=== PATIENT | male | born 1970 | race African-American/Black ===

== ENCOUNTER 2021-05-31 10:42 | Outpatient (REF) | payer OTHER, SELFPAY ==
[2021-05-31 13:33] LABS: MANUAL DIFF FLAG NO
[2021-05-31 13:36] LABS: Basophils Percent Auto 0.7 % (0-2); Eosinophils Absolute Auto 0.2 X10*3/uL (0.0-0.4); Eosinophils Percent Auto 3.7 % (0-4); Hemoglobin 14.3 g/dl (14.0-18.0); Imm Gran Abs Auto 0.02 X10*3/uL (0.00-0.03); Imm Gran Pct Auto 0.4 % (0.0-0.4); Lymphocytes Absolute Auto 1.9 X10*3/uL (1.2-4.9); Lymphocytes Percent Auto 34.1 % (20-40); Mean Corpuscular HGB Conc 32.5 g/dl (31.0-36.0); Mean Corpuscular Hemoglobin 31.2 pg (27.0-33.0); Mean Corpuscular Volume 96.1 fL (80.0-98.0); Mean Platelet Volume 10.2 fL (9.4-12.4); Monocytes Absolute Auto 0.8 X10*3/uL (0.1-1.2); Monocytes Percent Auto 14.4 % (2-11); Neutrophils Absolute Auto 2.7 x10*3/uL (2.0-8.3); Neutrophils Percent Auto 46.7 % (45-73); Platelet Count 305 X10*3/uL (160-400); Red Blood Count 4.58 X10*6/uL (4.60-5.80); Red Cell Distribution Width 14.2 % (11.0-16.0); White Blood Count 5.7 X10*3/uL (4.8-10.8)
[2021-05-31 13:48] LABS: Alanine Aminotransferase 90 U/L (0-40); Albumin Level 4.7 g/dL (3.5-5.0); Alkaline Phosphatase 67 U/L (39-117); Anion Gap 12 (12-20); Aspartate Amino Transferase 65 U/L (5-37); Bilirubin Total 0.8 mg/dL (0.0-1.0); Blood Urea Nitrogen 12 mg/dL (9-16); Calcium 9.7 mg/dL (8.4-10.2); Carbon Dioxide 29 mmol/L (22-29); Chloride 101 mmol/L (96-108); Cholesterol 271 mg/dL; Estimated Glomerular Filt Rate > 60; Glucose Fasting 114 mg/dL (60-99); HDL Cholesterol 89 mg/dL; LDL Cholesterol Calculated 169 mg/dl; Potassium 4.4 mmol/L (3.3-5.1); Rheumatoid Factor < 15.0 IU/mL (<15.0); Sodium 138 mmol/L (135-145); Total Protein 7.6 g/dL (6.5-8.0); Triglycerides 65 mg/dL
[2021-05-31 14:16] LABS: Erythrocyte Sedimentation Rate 2 MM/HR (0-15)
[2021-05-31 14:39] LABS: TSH reflex Free T4 1.37 uIU/mL (0.32-4.0)
[2021-06-02 13:37] LABS: CRP High Sensitivity 1.2 mg/L
[2021-06-02 16:56] LABS: Cyclic Citrullinated Peptide <16 UNITS
== END 2021-05-31 10:43 | disposition home or self-care (01) ==
LOC: HO.WFDLDS 10:42
PROVIDERS: Visit Provider Family Medicine
DX: Z00.00 Encounter for general adult medical examination without abnormal findings (principal); Z12.5 Encounter for screening for malignant neoplasm of prostate; M19.90 Unspecified osteoarthritis, unspecified site
CPT/HCPCS: 36415; 80053; 80061; 84153; 84443; 85025; 85652; 86141; 86200; 86431

== ENCOUNTER → 2021-06-04 10:55 | Outpatient (BNVA) | payer OTHER, SELFPAY | PROVIDERS: PCP Family Medicine; Visit Provider Nurse Practitioner Family | DX: G47.9 Sleep disorder, unspecified (principal); R06.83 Snoring; F10.10 Alcohol abuse, uncomplicated | CPT/HCPCS: 99202 ==

== ENCOUNTER 2021-06-23 11:10 | Emergency (ER) | payer OTHER, SELFPAY ==
--- NOTE | ~2021-06-23 | US_ITS ---
EXAMINATION: US ABDOMEN LIMITED CLINICAL INFORMATION: Right upper quadrant pain. COMPARISON: None TECHNIQUE: Real-time imaging of the right upper quadrant abdominal viscera. FINDINGS: PANCREAS: Visualized portions unremarkable. LIVER: Diffuse increased echotexture without focal abnormality. GALLBLADDER: Mild dependent sludge near the neck without mural thickening or pericholecystic fluid. COMMON BILE DUCT: Normal in caliber measuring 0.4 cm in diameter. RIGHT KIDNEY: 11.2 cm. Unremarkable. FREE FLUID: None. US/US abdomen limited IMPRESSION: 1. Hepatic steatosis. 2. Possible mild dependent gallbladder sludge without acute cholecystitis.
[2021-06-23 11:59] VITALS: BP 126/84; PULSE 74; RESP 19; TEMP 36.6; O2SAT 99; BMI 33.9
[2021-06-23 12:30] LABS: MANUAL DIFF FLAG NO
[2021-06-23 12:32] LABS: Basophils Percent Auto 0.4 % (0-2); Eosinophils Absolute Auto 0.1 X10*3/uL (0.0-0.4); Eosinophils Percent Auto 1.9 % (0-4); Hematocrit 36.6 % (42.0-52.0); Hemoglobin 12.5 g/dl (14.0-18.0); Imm Gran Abs Auto 0.03 X10*3/uL (0.00-0.03); Imm Gran Pct Auto 0.4 % (0.0-0.4); Lymphocytes Absolute Auto 1.2 X10*3/uL (1.2-4.9); Lymphocytes Percent Auto 17.4 % (20-40); Mean Corpuscular HGB Conc 34.2 g/dl (31.0-36.0); Mean Corpuscular Hemoglobin 31.5 pg (27.0-33.0); Mean Corpuscular Volume 92.2 fL (80.0-98.0); Mean Platelet Volume 9.3 fL (9.4-12.4); Monocytes Absolute Auto 0.4 X10*3/uL (0.1-1.2); Monocytes Percent Auto 6.2 % (2-11); Neutrophils Percent Auto 73.7 % (45-73); Platelet Count 215 X10*3/uL (160-400); Red Blood Count 3.97 X10*6/uL (4.60-5.80); Red Cell Distribution Width 14.2 % (11.0-16.0); White Blood Count 6.8 X10*3/uL (4.8-10.8)
[2021-06-23 12:35] LABS: Appearance Urine HAZY; Color Urine YELLOW; Glucose Urine UA NEG (NEG); Leukocyte Esterase Urine NEG (NEG); Nitrite Urine NEG (NEG); Urine Blood NEG (NEG); Urine Ketones NEG (NEG); Urine Protein NEG (NEG-TRACE)
[2021-06-23 12:36] VITALS: BP 124/81; PULSE 68; RESP 17; TEMP 36.7; O2SAT 94
--- NOTE | 2021-06-23 12:36 | ED_ITS ---
HPI - General Adult General Chief complaint: Abdominal Pain Stated complaint: upper r sided rib abd pain Time Seen by Provider: 06/23/21 12:33 Source: patient Limitations: no limitations History of Present Illness HPI narrative: This is a 51-year-old male with a history of alcohol abuse and anxiety, insomnia, who had sudden onset of right upper quadrant pain when he moves a certain way last night. The patient notes that today he notices the pain again when he twist his chest. He denies any shortness of breath. Did feel little nauseated this morning but states that is pretty common for him given his alcohol abuse. He denies any fever. He notes he has not been eating as much after having COVID because he lost his sense of taste and smell. He uses marijuana occasionally, drinks every night, denies any other substances. 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 Related Data Previous Rx's Medication Instructions Recorded fluticasone furoate 50 1 inh INHALATION DAILY PRN 7 Days 04/09/21 mcg/actuation blister powder for #30 ea inhalation escitalopram oxalate 20 mg tablet 20 mg PO DAILY 30 Days #30 tab 05/27/21 (Lexapro) hydroxyzine HCl 50 mg tablet 50 mg PO BID PRN 30 Days #60 tab 05/27/21 meloxicam 15 mg tablet 15 mg PO DAILY 30 Days #30 tab 05/27/21 Allergies Allergy/AdvReac Type Severity Reaction Status Date / Time Opioids-Methadone and Related AdvReac Intermediate Unknown Verified 06/23/21 12:03 lidocaine AdvReac Mild Unknown Verified 06/23/21 12:03 morphine AdvReac Unknown Unknown Verified 06/23/21 12:03 Review of Systems Review of Systems: Yes all other systems are reviewed and are negative Constitutional: Constitutional: Reports as per HPI and Denies fever(s) Eyes: Eyes: Reports as per HPI and Reports no additional eye complaints ENT: Reports system reviewed and no additional complaints, except as documented, Reports as per HPI, Denies nasal congestion, Denies nasal discharge and Denies sore throat Cardiovascular: Cardiovascular: Reports as per HPI, Denies chest pain and Denies dyspnea Respiratory: Respiratory: Reports as per HPI, Denies cough and Denies dyspnea Gastrointestinal: Gastrointestinal: Reports as per HPI, Reports abdominal pain (Right Upper quadrant/right lower chest), Denies diarrhea and Denies vomiting Genitourinary: Genitourinary: Reports as per HPI Musculoskeletal: Musculoskeletal: Reports no additional musculoskeletal complaints and Denies numbness Integumentary/Breasts: Skin/Breast: Reports as per HPI and Denies rash Neurologic: Reports as per HPI, Denies focal weakness and Denies numbness Psychiatric: Psychiatric: Reports no additional psychiatric complaints, Reports as per HPI and Reports anxiety Endocrine: Endocrine: Reports no additional endocrine complaints and Reports as per HPI Hematologic/Lymphatic: Hematologic/Lymphatic: Reports no additional hematol ogic/lymphatic complaints, Reports as per HPI and Reports other (No peripheral edema) [facility] Past Medical History Medical History (Updated 06/23/21 @ 13:38 by Sarabjit Villarreal MD) Anxiety Arthritis COVID-19 Depression Surgical History History of back surgery Family History Family History (Updated 06/04/21 @ 11:11 by Efrain Davila) Mother Breast cancer Congestive heart disease Social History Social History (Updated 06/04/21 @ 11:12 by Efrain Davila) Housing: House Alcohol intake: current Alcohol intake frequency: 3 or more drinks per day Alcohol type: hard liquor Patient Tobacco Use Status: Former Tobacco user Smoked in Last 30 Days: No e-Cigarette/Vaping Use: Never Used Second Hand Smoke Exposure: No Use of substances other than those prescribed or required for medical reasons: Yes Substance Use Type: Marijuana Advance Directives: No Advance Directives Information Provided: Yes service: No Current occupational status: employed Current occupational exposures/hazards: No Cognitive needs: No Hearing needs: No Vision needs: No Physical Exam ED Vital Signs: Vital Signs - 24 hr 06/23/21 11:59 06/23/21 12:36 Temperature 97.8 F 98.1 F Pulse Rate 74 68 Respiratory Rate 19 17 Blood Pressure 126/84 124/81 Pulse Oximetry 99 94 BMI result Body Mass Index 33.9 Const Other: Patient anxious appearing with borderline pressured speech General: no acute distress Orientation/consciousness: patient oriented x3 HENMT Head: Yes normal to inspection General nose exam: Normal external nose present Mouth: moist mucous membranes Throat: Yes posterior oropharynx normal, Yes tonsils normal and Yes uvula midline Eyes Eyelids: Yes eyelids normal Conjunctivae: conjunctivae normal Pupils: Equal, round and reactive pupils present Neck Neck: Yes supple Chest Other: Mildly tender at the junction between the right inferior chest in the right upper quadrant Resp Effort & Inspection: normal respiratory effort Auscultation: clear to auscultation bilaterally Cardio Rate: regular rate Rhythm: regular rhythm Heart sounds: S1 normal heart sound present, S2 normal heart sound present, no g allops, no murmurs and no rubs GI Inspection: No distended Palpation (GI): Soft to palpation and nontender Auscultation: normal bowel sounds Skin General skin exam: other (Warm and dry) Neuro General: patient oriented x3 and CN's II-XI intact bilaterally Cranial nerves: Yes Equal, round and reactive pupils present Extrem General: Yes no pedal edema Psych Affect: normal affect Attitude: cooperative Medical Decision Making MDM Narrative Medical decision making narrative: Patient with a history of anxiety and insomnia, alcohol abuse, appears anxious, is concerned about pain in his right lower chest/right upper quadrant of came on acutely when he moved a certain way, is reproducible on palpation as well as with movement. LFTs and white blood cell count normal. Low suspicion for an acute biliary process. Initially ordered right upper quadrant ultrasound however the patient wished to go home, felt the pain was musculoskeletal, and noted that he was becoming anxious and needed to get home. Lab Data Lab results reviewed: Yes I reviewed the patient's lab results. Result diagrams: 06/23/21 12:26 06/23/21 12:26 Labs: Lab Results 06/23/21 06/23/21 06/23/21 Range/Units 12:26 12:26 12:26 WBC 6.8 (4.8-10.8) X10*3/uL RBC 3.97 L (4.60-5.80) X10*6/uL Hgb 12.5 L (14.0-18.0) g/dl Hct 36.6 L (42.0-52.0) % MCV 92.2 (80.0-98.0) fL MCH 31.5 (27.0-33.0) pg MCHC 34.2 (31.0-36.0) g/dl RDW 14.2 (11.0-16.0) % Plt Count 215 D (160-400) X10*3/uL MPV 9.3 L (9.4-12.4) fL Immature Gran % (Auto) 0.4 (0.0-0.4) % Neut % (Auto) 73.7 H (45-73) % Lymph % (Auto) 17.4 L (20-40) % [place] % (Auto) 6.2 (2-11) % Eos % (Auto) 1.9 (0-4) % Baso % (Auto) 0.4 (0-2) % Lymph # (Auto) 1.2 (1.2-4.9) X10*3/uL [place] # (Auto) 0.4 (0.1-1.2) X10*3/uL Eos # (Auto) 0.1 (0.0-0.4) X10*3/uL Baso # (Auto) 0.0 (0.0-0.2) X10*3/uL Abs Immat Gran (auto) 0.03 (0.00-0.03) X10*3/uL Absolute Neuts (auto) 5.0 (2.0-8.3) x10*3/uL Absolute Nucleated RBC 0.000 (0.0-0.012) X10*3/uL Nucleated RBC % (auto) 0.0 (0.0-0.2) /100WBC Sodium 137 (135-145) mmol/L Potassium 4.7 (3.3-5.1) mmol/L Chloride 103 (96-108) mmol/L Carbon Dioxide 23 (22-29) mmol/L Anion Gap 16 (12-20) BUN 15 (9-16) mg/dL Creatinine 1.07 (0.5-1.4) mg/dL Estim Creat Clear Calc 100.1 Estimated GFR > 60 Random Glucose 99 (60-115) mg/dL Calcium 9.1 D (8.4-10.2) mg/dL Magnesium 1.9 (1.6-2.6) mg/dL Total Bilirubin < 0.2 (0.0-1.0) mg/dL AST 97 H (5-37) U/L ALT 103 H (0-40) U/L Alkaline Phosphatase 67 (39-117) U/L Total Protein 7.4 (6.5-8.0) g/dL Albumin 4.6 (3.5-5.0) g/dL Lipase 35 (8-78) U/L Urine Color YELLOW Urine Appearance HAZY Urine pH 6.0 (5.0-8.0) Ur Specific [place] 1.020 (1.005-1.025) Urine Protein NEG (NEG-TRACE) MG/DL Urine Glucose (UA) NEG (NEG) MG/DL Urine Ketones NEG (NEG) MG/DL Urine Blood NEG (NEG) Urine Nitrite NEG (NEG) Ur Leukocyte Esterase NEG (NEG) Urine Opiates Screen (Not Detect) Urine Fentanyl Screen (Not Detect) Ur Barbiturates Screen (Not Detect) Ur Phencyclidine Scrn (Not Detect) Ur Amphetamines Screen (Not Detect) U Benzodiazepines Scrn (Not Detect) Urine Cocaine Screen (Not Detect) U Marijuana (THC) Screen (Not Detect) 06/23/21 Range/Units 12:26 WBC (4.8-10.8) X10*3/uL RBC (4.60-5.80) X10*6/uL Hgb (14.0-18.0) g/dl Hct (42.0-52.0) % MCV (80.0-98.0) fL MCH (27.0-33.0) pg MCHC (31.0-36.0) g/dl RDW (11.0-16.0) % Plt Count (160-400) X10*3/uL MPV (9.4-12.4) fL Immature Gran % (Auto) (0.0-0.4) % Neut % (Auto) (45-73) % Lymph % (Auto) (20-40) % [place] % (Auto) (2-11) % Eos % (Auto) (0-4) % Baso % (Auto) (0-2) % Lymph # (Auto) (1.2-4.9) X10*3/uL [place] # (Auto) (0.1-1.2) X10*3/uL Eos # (Auto) (0.0-0.4) X10*3/uL Baso # (Auto) (0.0-0.2) X10*3/uL Abs Immat Gran (auto) (0.00-0.03) X10*3/uL Absolute Neuts (auto) (2.0-8.3) x10*3/uL Absolute Nucleated RBC (0.0-0.012) X10*3/uL Nucleated RBC % (auto) (0.0-0.2) /100WBC Sodium (135-145) mmol/L Potassium (3.3-5.1) mmol/L Chloride (96-108) mmol/L Carbon Dioxide (22-29) mmol/L Anion Gap (12-20) BUN (9-16) mg/dL Creatinine (0.5-1.4) mg/dL Estim Creat Clear Calc Estimated GFR Random Glucose (60-115) mg/dL Calcium (8.4-10.2) mg/dL Magnesium (1.6-2.6) mg/dL Total Bilirubin (0.0-1.0) mg/dL AST (5-37) U/L ALT (0-40) U/L Alkaline Phosphatase (39-117) U/L Total Protein (6.5-8.0) g/dL Albumin (3.5-5.0) g/dL Lipase (8-78) U/L Urine Color Urine Appearance Urine pH (5.0-8.0) Ur Specific [place] (1.005-1.025) Urine Protein (NEG-TRACE) MG/DL Urine Glucose (UA) (NEG) MG/DL Urine Ketones (NEG) MG/DL Urine Blood (NEG) Urine Nitrite (NEG) Ur Leukocyte Esterase (NEG) Urine Opiates Screen Not Detected (Not Detect) Urine Fentanyl Screen Not Detected (Not Detect) Ur Barbiturates Screen Not Detected (Not Detect) Ur Phencyclidine Scrn Not Detected (Not Detect) Ur Amphetamines Screen Not Detected (Not Detect) U Benzodiazepines Scrn Not Detected (Not Detect) Urine Cocaine Screen Not Detected (Not Detect) U Marijuana (THC) Screen POSITIVE H (Not Detect) Discharge Plan Discharge Clinical Impression: Acute chest wall pain Patient Disposition: Home, Self-Care Instructions: Chest Wall Pain (ED) Additional Instructions: Taking meloxicam as per routine. Use the hydroxyzine for anxiety. Follow-up with primary care physician. Return for any new or worsened symptoms. Prescriptions: No Action escitalopram oxalate [Lexapro] 20 mg tablet 20 mg PO DAILY 30 Days Qty: 30 1RF hydroxyzine HCl 50 mg tablet 50 mg PO BID PRN (Reason: anxiety) 30 Days Qty: 60 0RF meloxicam 15 mg tablet 15 mg PO DAILY 30 Days Qty: 30 1RF fluticasone furoate 50 mcg/actuation blister with device 1 inh inhalation DAILY PRN (Reason: sinus symptoms) 7 Days Qty: 30 0RF Rx Instructions: One spray each nostril daily Interventions: ED Discharge Assessment Last Done: 06/23/21 13:53 Discharge Date/Time: 06/23/21 13:53
[2021-06-23] MEDS: hydrOXYzine HCL 25 MG TABLET PO (12:49)
[2021-06-23 12:53] LABS: Alanine Aminotransferase 103 U/L (0-40); Albumin Level 4.6 g/dL (3.5-5.0); Alkaline Phosphatase 67 U/L (39-117); Anion Gap 16 (12-20); Aspartate Amino Transferase 97 U/L (5-37); Bilirubin Total < 0.2 mg/dL (0.0-1.0); Blood Urea Nitrogen 15 mg/dL (9-16); Calcium 9.1 mg/dL (8.4-10.2); Carbon Dioxide 23 mmol/L (22-29); Chloride 103 mmol/L (96-108); Creatinine Clr Calc Pharmacy 100.1; Estimated Glomerular Filt Rate > 60; Glucose Random 99 mg/dL (60-115); Lipase 35 U/L (8-78); Potassium 4.7 mmol/L (3.3-5.1); Sodium 137 mmol/L (135-145); Total Protein 7.4 g/dL (6.5-8.0)
[2021-06-23 13:46] LABS: Magnesium 1.9 mg/dL (1.6-2.6)
[2021-06-23 13:59] LABS: Amphetamine Screen Urine Not Detected (Not Detect); Barbiturates, Urine Not Detected (Not Detect); Benzodiazepines Screen Urine Not Detected (Not Detect); Cannabinoid Screen Urine POSITIVE (Not Detect); Cocaine Screen Urine Not Detected (Not Detect); Fentanyl, urine Not Detected (Not Detect); Opiate Screen Urine Not Detected (Not Detect); Phencyclidine Screen Urine Not Detected (Not Detect)
== END 2021-06-23 13:53 | disposition home or self-care (01) ==
PROVIDERS: Emergency Provider Emergency Medicine; PCP Family Medicine
DX: R07.89 Other chest pain (principal)
CPT/HCPCS: 36415; 76705; 80053; 80307; 81003; 83690; 83735; 85025; 99284

== ENCOUNTER → 2021-07-02 09:55 | Outpatient (BNVA) | payer OTHER, SELFPAY | PROVIDERS: PCP Family Medicine; Visit Provider Urology | DX: R97.20 Elevated prostate specific antigen [PSA] (principal) | CPT/HCPCS: 99202 ==

== ENCOUNTER → 2021-07-05 11:08 | Outpatient (BNVA) | payer OTHER, SELFPAY | PROVIDERS: Visit Provider Internal Medicine | DX: Z51.81 Encounter for therapeutic drug level monitoring (principal); F10.10 Alcohol abuse, uncomplicated | CPT/HCPCS: 80305; 99202 ==

== ENCOUNTER 2021-07-11 09:07 | Emergency (ER) | payer OTHER, SELFPAY ==
[2021-07-11 09:17] VITALS: BP 123/88; PULSE 98; RESP 18; TEMP 36.6; O2SAT 98; BMI 29.7
--- NOTE | 2021-07-11 09:22 | ECG_ITS ---
Test Reason : ANXIETY Blood Pressure : / mmHG Vent. Rate : 073 BPM Atrial Rate : 073 BPM P-R Int : 184 ms QRS Dur : 098 ms QT Int : 406 ms P-R-T Axes : 043 001 021 degrees QTc Int : 447 ms Normal sinus rhythm Normal ECG No previous ECGs available Referred By: Generic ED Physician Electronically Signed By:Vel Rico
--- NOTE | 2021-07-11 09:42 | ED_ITS ---
HPI - Anxiety General Chief Complaint: Anxiety Stated Complaint: Anxiety Time Seen by Provider: 07/11/21 09:36 Source: patient Mode of arrival: ambulatory Limitations: no limitations History of Present Illness HPI narrative: This is a 51 years old male with history of alcohol abuse presented to the ED complaining of palpitation malaise anxiety. He is a heavy alcoholic last drink was 3 hours ago. He states that he feels really anxious MD complaint: anxiety and heart racing Onset (ago): hour(s) (5) Severity: moderate Quality: constant Place: home Provoking factors: none known Relieving factors: nothing Exacerbating factors: nothing Related Data Previous Rx's Medication Instructions Recorded fluticasone furoate 50 1 inh INHALATION DAILY PRN 7 Days 04/09/21 mcg/actuation blister powder for #30 ea inhalation escitalopram oxalate 20 mg tablet 20 mg PO DAILY 30 Days #30 tab 05/27/21 (Lexapro) meloxicam 15 mg tablet 15 mg PO DAILY 30 Days #30 tab 05/27/21 hydroxyzine HCl 50 mg tablet 50 mg PO BID PRN 30 Days #60 tab 07/01/21 trazodone 50 mg tablet 50 mg PO BEDTIME PRN 30 Days #30 07/02/21 tab acamprosate 333 mg tablet,delayed 666 mg PO TID 30 Days #180 tab 07/05/21 release clonidine HCl 0.1 mg tablet 0.1 mg PO TID PRN 30 Days #90 tab 07/05/21 lorazepam 1 mg tablet 1 mg PO BID PRN #5 tab 07/11/21 Allergies Allergy/AdvReac Type Severity Reaction Status Date / Time Opioids-Methadone and Related AdvReac Intermediate Unknown Verified 07/11/21 09:17 morphine AdvReac Unknown Unknown Verified 07/11/21 09:17 Review of Systems Review of Systems: Yes all other systems are reviewed and are negative Eyes: Eyes: Reports no additional eye complaints ENT: Reports system reviewed and no additional complaints, except as document ed Cardiovascular: Cardiovascular: Reports no additional cardiovascular complaints and Reports rapid heart rate Gastrointestinal: Gastrointestinal: Reports no additional gastrointestinal complaints Musculoskeletal: Musculoskeletal: Reports no additional musculoskeletal complaints PMFSH Past Medical History Medical History Alcohol abuse Anxiety Arthritis COVID-19 Depression Surgical History History of back surgery Family History Family History Mother Breast cancer Congestive heart disease Social History Social History Housing: House Alcohol intake: current Alcohol intake frequency: 3 or more drinks per day Alcohol type: hard liquor Patient Tobacco Use Status: Former Tobacco user e-Cigarette/Vaping Use: Never Used Second Hand Smoke Exposure: No Substance Use Type: Marijuana Advance Directives: No Advance Directives Information Provided: No service: No Current occupational status: employed Current occupational exposures/hazards: No Cognitive needs: No Hearing needs: No Vision needs: No Physical Exam Vital Signs: Vital Signs: Last Vital Signs Temp 97.8 F 07/11/21 09:17 Pulse 98 07/11/21 09:17 Resp 18 07/11/21 09:17 BP 123/88 07/11/21 09:17 Pulse Ox 98 07/11/21 09:17 BMI result Body Mass Index 29.7 Const: General: cooperative and anxious Nutritional Appearance: average body habitus HEENT: Head: Yes normal to inspection and Yes normocephalic Ears: external ears normal General nose exam: Normal external nose present Face and sinus: Yes normal facial exam Mouth: Normal oral and palatal mucosa present Neck: Neck: Yes normal visual inspection, Yes full ROM, Yes no lymphadenopathy and Yes no meningeal signs Thyroid: Thyroid normal Carotids: normal carotid upstroke Chest: Chest palpation & inspection: normal inspection of the chest Resp: Effort & Inspection: normal respiratory effort Auscultation: clear to auscultation bilaterally Cardio: Jugular venous distension: no JVD Rate: regular rate Rhythm: regular rhythm GI: Inspection: Yes normal to inspection Palpation (GI): Soft to palpation : General: Yes no CVA tenderness Back/Spine/Pelvis: Back: no CVA tenderness Pelvis: no pain with anterior- posterior compression Skin: General skin exam: no rashes or lesions noted and elasticity normal Lesions: no lesions Rashes: no rashes Trauma: no lacerations or abrasions Neuro: General: no meningeal signs Extrem: Other: 3X 3 cm cyst in the anterior rt leg (pt states has been present X 1 year) General: Yes normal to inspection, Yes full ROM and Yes capillary refill normal Right upper extremity: normal to inspection Course Reevaluation(s) Reevaluation #1: Will have care team see the pt for his alcohol use disorder/anxiety Reevaluation #2: Care team saw the pt,pt states that he is not ready for alcohol detox inpatient and wants to try on his own,pt is asking me for few days supply of ativan so he can stop onhis own ,I will give him #5 ativan MDM - Anxiety Lab Data Result diagrams: 07/11/21 09:54 07/11/21 09:54 Labs: Lab Results 07/11/21 07/11/21 07/11/21 Range/Units 09:54 09:54 09:54 WBC 5.5 (4.8-10.8) X10*3/uL RBC 4.43 L (4.60-5.80) X10*6/uL Hgb 13.8 L (14.0-18.0) g/dl Hct 39.6 L (42.0-52.0) % MCV 89.4 (80.0-98.0) fL MCH 31.2 (27.0-33.0) pg MCHC 34.8 (31.0-36.0) g/dl RDW 13.5 (11.0-16.0) % Plt Count 253 (160-400) X10*3/uL MPV 9.5 (9.4-12.4) fL Immature Gran % (Auto) 0.4 (0.0-0.4) % Neut % (Auto) 46.8 (45-73) % Lymph % (Auto) 37.7 (20-40) % [place] % (Auto) 10.6 (2-11) % Eos % (Auto) 3.8 (0-4) % Baso % (Auto) 0.7 (0-2) % Lymph # (Auto) 2.1 (1.2-4.9) X10*3/uL [place] # (Auto) 0.6 (0.1-1.2) X10*3/uL Eos # (Auto) 0.2 (0.0-0.4) X10*3/uL Baso # (Auto) 0.0 (0.0-0.2) X10*3/uL Abs Immat Gran (auto) 0.02 (0.00-0.03) X10*3/uL Absolute Neuts (auto) 2.6 (2.0-8.3) x10*3/uL Absolute Nucleated RBC 0.000 (0.0-0.012) X10*3/uL Nucleated RBC % (auto) 0.0 (0.0-0.2) /100WBC Sodium 135 (135-145) mmol/L Potassium 3.6 D (3.3-5.1) mmol/L Chloride 101 (96-108) mmol/L Carbon Dioxide 17 L (22-29) mmol/L Anion Gap 21 H (12-20) BUN 15 (9-16) mg/dL Creatinine 0.94 (0.5-1.4) mg/dL Estim Creat Clear Calc 116.7 Estimated GFR > 60 Random Glucose 130 H (60-115) mg/dL Calcium 9.4 (8.4-10.2) mg/dL Total Bilirubin 0.6 (0.0-1.0) mg/dL AST 177 H (5-37) U/L ALT 147 H (0-40) U/L Alkaline Phosphatase 74 (39-117) U/L Troponin I High Sens < 3.5 (<3.5-35.0) ng/L Total Protein 8.1 H (6.5-8.0) g/dL Albumin 4.8 (3.5-5.0) g/dL Ethyl Alcohol mg/dL 07/11/21 Range/Units 09:54 WBC (4.8-10.8) X10*3/uL RBC (4.60-5.80) X10*6/uL Hgb (14.0-18.0) g/dl Hct (42.0-52.0) % MCV (80.0-98.0) fL MCH (27.0-33.0) pg MCHC (31.0-36.0) g/dl RDW (11.0-16.0) % Plt Count (160-400) X10*3/uL MPV (9.4-12.4) fL Immature Gran % (Auto) (0.0-0.4) % Neut % (Auto) (45-73) % Lymph % (Auto) (20-40) % [place] % (Auto) (2-11) % Eos % (Auto) (0-4) % Baso % (Auto) (0-2) % Lymph # (Auto) (1.2-4.9) X10*3/uL [place] # (Auto) (0.1-1.2) X10*3/uL Eos # (Auto) (0.0-0.4) X10*3/uL Baso # (Auto) (0.0-0.2) X10*3/uL Abs Immat Gran (auto) (0.00-0.03) X10*3/uL Absolute Neuts (auto) (2.0-8.3) x10*3/uL Absolute Nucleated RBC (0.0-0.012) X10*3/uL Nucleated RBC % (auto) (0.0-0.2) /100WBC Sodium (135-145) mmol/L Potassium (3.3-5.1) mmol/L Chloride (96-108) mmol/L Carbon Dioxide (22-29) mmol/L Anion Gap (12-20) BUN (9-16) mg/dL Creatinine (0.5-1.4) mg/dL Estim Creat Clear Calc Estimated GFR Random Glucose (60-115) mg/dL Calcium (8.4-10.2) mg/dL Total Bilirubin (0.0-1.0) mg/dL AST (5-37) U/L ALT (0-40) U/L Alkaline Phosphatase (39-117) U/L Troponin I High Sens (<3.5-35.0) ng/L Total Protein (6.5-8.0) g/dL Albumin (3.5-5.0) g/dL Ethyl Alcohol 203 mg/dL Discharge Plan Discharge Clinical Impression: Anxiety, Alcohol abuse Patient Disposition: Home, Self-Care Instructions: Anxiety (ED), Alcohol Use Disorder (ED) Additional Instructions: follow up with your primary care Doctor,call in AM and arrange follow up Prescriptions: New lorazepam 1 mg tablet 1 mg PO BID PRN (Reason: alcohol withdrawal) Qty: 5 0RF No Action hydroxyzine HCl 50 mg tablet 50 mg PO BID PRN (Reason: anxiety) 30 Days Qty: 60 0RF escitalopram oxalate [Lexapro] 20 mg tablet 20 mg PO DAILY 30 Days Qty: 30 1RF meloxicam 15 mg tablet 15 mg PO DAILY 30 Days Qty: 30 1RF fluticasone furoate 50 mcg/actuation blister with device 1 inh inhalation DAILY PRN (Reason: sinus symptoms) 7 Days Qty: 30 0RF Rx Instructions: One spray each nostril daily trazodone 50 mg tablet 50 mg PO BEDTIME PRN (Reason: sleep) 30 Days Qty: 30 0RF acamprosate 333 mg tablet,delayed release (DR/EC) 666 mg PO TID 30 Days Qty: 180 3RF clonidine HCl 0.1 mg tablet 0.1 mg PO TID PRN (Reason: alcohol withdrawal) 30 Days Qty: 90 0RF Referrals: Mark Mora MD [Primary Care Provider] - 1 day Interventions: ED Discharge Assessment Last Done: 07/11/21 11:40 Discharge Date/Time: 07/11/21 12:04
[2021-07-11] MEDS: LORazepam 1 MG TABLET PO (09:48)
[2021-07-11 09:58] LABS: MANUAL DIFF FLAG NO
[2021-07-11 10:07] LABS: Basophils Percent Auto 0.7 % (0-2); Eosinophils Absolute Auto 0.2 X10*3/uL (0.0-0.4); Eosinophils Percent Auto 3.8 % (0-4); Hematocrit 39.6 % (42.0-52.0); Hemoglobin 13.8 g/dl (14.0-18.0); Imm Gran Abs Auto 0.02 X10*3/uL (0.00-0.03); Imm Gran Pct Auto 0.4 % (0.0-0.4); Lymphocytes Absolute Auto 2.1 X10*3/uL (1.2-4.9); Lymphocytes Percent Auto 37.7 % (20-40); Mean Corpuscular HGB Conc 34.8 g/dl (31.0-36.0); Mean Corpuscular Hemoglobin 31.2 pg (27.0-33.0); Mean Corpuscular Volume 89.4 fL (80.0-98.0); Mean Platelet Volume 9.5 fL (9.4-12.4); Monocytes Absolute Auto 0.6 X10*3/uL (0.1-1.2); Monocytes Percent Auto 10.6 % (2-11); Neutrophils Absolute Auto 2.6 x10*3/uL (2.0-8.3); Neutrophils Percent Auto 46.8 % (45-73); Platelet Count 253 X10*3/uL (160-400); Red Blood Count 4.43 X10*6/uL (4.60-5.80); Red Cell Distribution Width 13.5 % (11.0-16.0); White Blood Count 5.5 X10*3/uL (4.8-10.8)
[2021-07-11 10:19] LABS: Ethanol 203 mg/dL
[2021-07-11 10:24] LABS: Alanine Aminotransferase 147 U/L (0-40); Albumin Level 4.8 g/dL (3.5-5.0); Alkaline Phosphatase 74 U/L (39-117); Anion Gap 21 (12-20); Aspartate Amino Transferase 177 U/L (5-37); Bilirubin Total 0.6 mg/dL (0.0-1.0); Blood Urea Nitrogen 15 mg/dL (9-16); Calcium 9.4 mg/dL (8.4-10.2); Carbon Dioxide 17 mmol/L (22-29); Chloride 101 mmol/L (96-108); Creatinine Clr Calc Pharmacy 116.7; Estimated Glomerular Filt Rate > 60; Glucose Random 130 mg/dL (60-115); Potassium 3.6 mmol/L (3.3-5.1); Sodium 135 mmol/L (135-145); Total Protein 8.1 g/dL (6.5-8.0)
[2021-07-11 10:28] LABS: Troponin-I High Sensitivity < 3.5 ng/L (<3.5-35.0)
--- NOTE | 2021-07-11 12:25 | MHC.RECOVSUP ---
Recovery Support note: Patient is a 51 year old Maltese speaking male who presented to [facility] ED due to a panic attack while drinking the night prior. Patient reports he wants to stop drinking and that he has had success in the past maintaining sobriety. Patient recognizes that he cannot taper his consumption, stating he has a high tolerance and that he cannot effectively manage his intake while under the influence. Patient is interested in going to detox however reports he has a couple of projects that he has to do in the meantime. 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 Patient provided with information on ATS facilities and contact information for this race and sports book writer in the event that he requires assistance after discharge. Discussed [facility] and recovery coaching. Patient referred to cryolite recovery operator and accepted information on [facility]. Discussed case with CARE Team.
--- NOTE | 2021-07-11 12:45 | MHC.CARE ---
CARE Team responded to consult request to speak with patient who came to the ED with reported generally not feeling well, worried about various new symptoms which he feels are related and stated that he is quite anxious. Patient was in ED bed 10, he engaged easily and shared that last night he went to the [facility] in [place] to relax and use the facilities, when he got out of the hot tube he experienced a panic attack that was difficult to control via the usual methods and also started feeling not well. 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 In terms of alcohol use, patient reported he was five years sober but picked up again in the last year or two, said his tolerance is increasing (up to 3 pints of 80 proof vodka each night), lives alone and cannot go more than a couple hours before withdrawal symptoms begin. Recognizes this as a problem as he has many life goals and knows the alcohol is damaging him. He would like to quit and recent became a patient at the [facility] here at [facility] and was taking medication to decrease cravings but it makes him feel ill so may stop. Patient is open to resources and the Recovery Team will also meet with patient for that purpose, CARE Team will make referral to [facility], they will reach out to him to make an intake appointment for individual therapy.
== END 2021-07-11 12:04 | disposition home or self-care (01) ==
PROVIDERS: Emergency Provider Emergency Medicine; PCP Family Medicine
DX: F41.1 Generalized anxiety disorder (principal); F43.0 Acute stress reaction; F10.129 Alcohol abuse with intoxication, unspecified; Y90.7 Blood alcohol level of 200-239 mg/100 ml; R00.2 Palpitations; Z79.899 Other long term (current) drug therapy; Z87.891 Personal history of nicotine dependence
CPT/HCPCS: 36415; 80053; 82077; 84484; 85025; 93005; 99283; 99284

== ENCOUNTER 2021-08-04 11:30 | Outpatient (REF) | payer OTHER, SELFPAY ==
[2021-08-04 12:16] LABS: Influenza A PCR NEGATIVE (Negative); Influenza B PCR NEGATIVE (Negative); Resp Syncy Virus RNA Qual PCR NEGATIVE (Negative); SARS COV2 PCR INHOUSE NEGATIVE (Negative)
== END 2021-08-04 11:31 | disposition home or self-care (01) ==
LOC: HO.LNP 11:30
PROVIDERS: Visit Provider Family Medicine
DX: Z20.822 Contact with and (suspected) exposure to COVID-19 (principal); R09.81 Nasal congestion
CPT/HCPCS: 0241U

== ENCOUNTER → 2021-08-20 20:32 | Outpatient (REF) | payer OTHER, SELFPAY | LOC: HO.SL 20:32 | PROVIDERS: PCP Family Medicine; Visit Provider Nurse Practitioner Family | DX: G47.61 Periodic limb movement disorder (principal) | CPT/HCPCS: 95810 ==

== ENCOUNTER 2021-09-02 08:10 | Outpatient (REF) | payer OTHER, SELFPAY ==
[2021-09-02 08:30] VITALS: BMI 30.9
[2021-09-02 08:31] VITALS: BP 112/72; PULSE 60; RESP 16; TEMP 36.2; O2SAT 98
[2021-09-02 09:00] VITALS: BP 115/78; PULSE 61; RESP 16; O2SAT 98
--- NOTE | 2021-09-09 10:05 | W.PM.OPN ---
Operative Note Operative Note Date of Service: 09/02/21 Narrative: Preoperative diagnosis: Elevated PSA Postoperative diagnosis: Elevated PSA Procedure: 1. transrectal ultrasound measurement of prostate 2. transrectal ultrasound-guided pudendal nerve block 3. transrectal ultrasound-guided prostate biopsy 12 core Surgeon: Dr. Jean Marie Yoon Anesthetic: Local Indications for procedure: Elevated PSA PSA 9.1 05/25 Procedure: After informed consent was verified, the patient was brought into the procedure area and lay left-hand side down on the table. Patient identity confirmed. Perioperative antibiotics confirmed. Iodine 10cc with Gel was placed per rectum Ultrasound probe was placed per rectum The prostate was measured in 3 dimensions Total volume equals 65 gm There were no cystic structures and no calcifications noted and the prostate was homogeneous in nature A ultrasound-guided pudendal nerve block was performed using 10 cc of 1% lidocaine. 8 cc was placed at the base and 2 cc of the apex. A 12 core biopsy was performed with 6 cores each side. Two cores were taken at the apex, mid and base. Cores were spaced between lateral and medial. He tolerated the procedure well. Was able to ambulate to bathroom after 5 minutes. Printed instructions regarding antibiotic use and common side effects such as low-grade temperature and bleeding were given Pathology: 12 core prostate biopsy.
== END 2021-09-02 08:11 | disposition home or self-care (01) ==
LOC: HO.MS 08:10
PROVIDERS: Visit Provider Urology
PROC: (CPT 55700; principal; 2021-09-02 08:00)
DX: R97.20 Elevated prostate specific antigen [PSA] (principal); F41.8 Other specified anxiety disorders; F10.10 Alcohol abuse, uncomplicated; Z88.8 Allergy status to other drugs, medicaments and biological substances; Z86.16 Personal history of COVID-19; Z87.891 Personal history of nicotine dependence
CPT/HCPCS: 55700; 76942; 88305

== ENCOUNTER → 2021-12-02 08:08 | Outpatient (BNVA) | payer OTHER, SELFPAY | PROVIDERS: PCP Family Medicine; Visit Provider Internal Medicine Rheumatology | DX: M79.641 Pain in right hand (principal); M79.642 Pain in left hand; M79.671 Pain in right foot; M79.672 Pain in left foot; M25.511 Pain in right shoulder; R74.8 Abnormal levels of other serum enzymes | CPT/HCPCS: 99202 ==

== ENCOUNTER 2021-12-08 11:04 | Outpatient (REF) | payer SELFPAY ==
--- NOTE | ~2021-12-08 | XR_ITS ---
EXAMINATION: XR SHOULDER, RIGHT CLINICAL INFORMATION: M79.641 - Pain in right hand COMPARISON: None TECHNIQUE: Right shoulder is imaged in 4 views. FINDINGS: No fracture, dislocation, destructive process. Normal bony mineralization. There is mild spurring from the inferior medial humeral head. No glenohumeral erosive changes or subchondral sclerosis. There are mild degenerative changes acromioclavicular joint with superior spurring. The acromioclavicular alignment is normal. There is focal calcification adjacent to greater tuberosity in region of distal superior rotator cuff consistent with calcific tendinosis. XR/XR shoulder RT min 2V IMPRESSION: -Calcific tendinosis distal superior rotator cuff. -Degenerative changes acromioclavicular joint. -Small spur inferior medial humeral head.
--- NOTE | ~2021-12-08 | XR_ITS ---
EXAMINATION: XR HAND, RIGHT XR HAND, LEFT CLINICAL INFORMATION: Pain hands. COMPARISON: None TECHNIQUE: Exam is imaged in 3 views. There are a total of 6 views. FINDINGS: Right: No acute or healing fracture, dislocation, destructive process. Normal bony mineralization. Ulnar variance is within neutral. There is no carpal joint narrowing or definite chondrocalcinosis. There is spurring/exostosis from the dorsomedial and palmar lateral metacarpal head. There is mild narrowing third MCP joint without erosive change or chondrocalcinosis. The other MCP and the interphalangeal joints are unremarkable. Right: No acute or healing fracture, dislocation, destructive process. Normal bony mineralization. Ulnar variance is within neutral. No carpal narrowing or chondrocalcinosis. The MCP joints are unremarkable. There are mild degenerative changes index finger DIP joint. XR/XR hand LT min 3V IMPRESSION: Right: -Narrowing third MCP joint. Spurring/exostosis dorso-medial and palmar lateral third metacarpal head. No erosive change. Left: -Degenerative changes index finger DIP joint. No erosive change.
--- NOTE | ~2021-12-08 | XR_ITS ---
EXAMINATION: XR FOOT, RIGHT XR FOOT, LEFT CLINICAL INFORMATION: Foot pain, bilateral. COMPARISON: None TECHNIQUE: Each foot is imaged in 3 views. There are total of 6 views. FINDINGS: Right: No fracture, dislocation, destructive process. Normal bony mineralization. Subtalar joint and ankle joint not well visualized on lateral view likely related to positioning. The retrocalcaneal recess is preserved. There is a tiny plantar calcaneal spur. Midfoot unremarkable. No joint narrowing or erosive change. Forefoot shows prominent osteoarthritic changes first MTP with marked joint narrowing, subchondral sclerosis, and prominent spurring greatest medial lateral. The interphalangeal joints are unremarkable. Left: No fracture, dislocation, destructive process. Normal bony mineralization. Subtalar joint and ankle joint not well visualized on lateral view likely related to positioning. The retrocalcaneal recess is preserved. There is a small plantar calcaneal spur. Midfoot unremarkable. No joint narrowing or erosive change. Forefoot shows moderate osteoarthritic changes first MTP with marked joint narrowing, subchondral sclerosis, and prominent spurring greatest medial lateral. The interphalangeal joints are unremarkable. XR/XR foot LT min 3V IMPRESSION: -Bilateral plantar calcaneal spurs, greater on left. -Bilateral osteoarthritis first MTP, prominent on right, moderate on left.
--- NOTE | ~2021-12-08 | XR_ITS ---
EXAMINATION: XR HAND, RIGHT XR HAND, LEFT CLINICAL INFORMATION: Pain hands. COMPARISON: None TECHNIQUE: Exam is imaged in 3 views. There are a total of 6 views. FINDINGS: Right: No acute or healing fracture, dislocation, destructive process. Normal bony mineralization. Ulnar variance is within neutral. There is no carpal joint narrowing or definite chondrocalcinosis. There is spurring/exostosis from the dorsomedial and palmar lateral metacarpal head. There is mild narrowing third MCP joint without erosive change or chondrocalcinosis. The other MCP and the interphalangeal joints are unremarkable. Right: No acute or healing fracture, dislocation, destructive process. Normal bony mineralization. Ulnar variance is within neutral. No carpal narrowing or chondrocalcinosis. The MCP joints are unremarkable. There are mild degenerative changes index finger DIP joint. XR/XR hand RT min 3V IMPRESSION: Right: -Narrowing third MCP joint. Spurring/exostosis dorso-medial and palmar lateral third metacarpal head. No erosive change. Left: -Degenerative changes index finger DIP joint. No erosive change.
--- NOTE | ~2021-12-08 | XR_ITS ---
EXAMINATION: XR FOOT, RIGHT XR FOOT, LEFT CLINICAL INFORMATION: Foot pain, bilateral. COMPARISON: None TECHNIQUE: Each foot is imaged in 3 views. There are total of 6 views. FINDINGS: Right: No fracture, dislocation, destructive process. Normal bony mineralization. Subtalar joint and ankle joint not well visualized on lateral view likely related to positioning. The retrocalcaneal recess is preserved. There is a tiny plantar calcaneal spur. Midfoot unremarkable. No joint narrowing or erosive change. Forefoot shows prominent osteoarthritic changes first MTP with marked joint narrowing, subchondral sclerosis, and prominent spurring greatest medial lateral. The interphalangeal joints are unremarkable. Left: No fracture, dislocation, destructive process. Normal bony mineralization. Subtalar joint and ankle joint not well visualized on lateral view likely related to positioning. The retrocalcaneal recess is preserved. There is a small plantar calcaneal spur. Midfoot unremarkable. No joint narrowing or erosive change. Forefoot shows moderate osteoarthritic changes first MTP with marked joint narrowing, subchondral sclerosis, and prominent spurring greatest medial lateral. The interphalangeal joints are unremarkable. XR/XR foot RT min 3V IMPRESSION: -Bilateral plantar calcaneal spurs, greater on left. -Bilateral osteoarthritis first MTP, prominent on right, moderate on left.
[2021-12-08 11:17] LABS: MANUAL DIFF FLAG NO
[2021-12-08 11:42] LABS: Basophils Percent Auto 0.4 % (0-2); Eosinophils Absolute Auto 0.2 X10*3/uL (0.0-0.4); Eosinophils Percent Auto 2.1 % (0-4); Hematocrit 44.5 % (42.0-52.0); Hemoglobin 15.1 g/dl (14.0-18.0); Imm Gran Abs Auto 0.07 X10*3/uL (0.00-0.03); Imm Gran Pct Auto 0.8 % (0.0-0.4); Lymphocytes Absolute Auto 2.7 X10*3/uL (1.2-4.9); Lymphocytes Percent Auto 30.4 % (20-40); Mean Corpuscular HGB Conc 33.9 g/dl (31.0-36.0); Mean Corpuscular Hemoglobin 30.3 pg (27.0-33.0); Mean Corpuscular Volume 89.2 fL (80.0-98.0); Mean Platelet Volume 9.2 fL (9.4-12.4); Monocytes Absolute Auto 0.8 X10*3/uL (0.1-1.2); Monocytes Percent Auto 9.2 % (2-11); Neutrophils Absolute Auto 5.1 x10*3/uL (2.0-8.3); Neutrophils Percent Auto 57.1 % (45-73); Platelet Count 301 X10*3/uL (160-400); Red Blood Count 4.99 X10*6/uL (4.60-5.80); Red Cell Distribution Width 13.8 % (11.0-16.0); White Blood Count 8.9 X10*3/uL (4.8-10.8)
[2021-12-08 12:02] LABS: Alanine Aminotransferase 32 U/L (0-40); Albumin Level 4.7 g/dL (3.5-5.0); Alkaline Phosphatase 71 U/L (39-117); Anion Gap 18 (12-20); Aspartate Amino Transferase 29 U/L (5-37); Bilirubin Total 0.6 mg/dL (0.0-1.0); Blood Urea Nitrogen 22 mg/dL (9-16); C Reactive Protein 0.17 mg/dL (< or = 0.50); Calcium 9.7 mg/dL (8.4-10.2); Carbon Dioxide 23 mmol/L (22-29); Chloride 99 mmol/L (96-108); Estimated Glomerular Filt Rate > 60; Glucose Fasting 94 mg/dL (60-99); Potassium 4.7 mmol/L (3.3-5.1); Sodium 135 mmol/L (135-145); Total Protein 7.8 g/dL (6.5-8.0); Uric Acid 6.6 mg/dL (3.4-7.0)
[2021-12-08 12:19] LABS: Erythrocyte Sedimentation Rate 4 MM/HR (0-15)
[2021-12-08 12:24] LABS: HBS Num1 1.33 mIU/mL (0-7.99); HBc Num1 1.39 S/CO (0.00-0.79); HBsAGNum1 0.16 S/CO (0.00-0.99); Hepatitis A Antibody IgM 0.14 Index (0-0.79); Hepatitis B Surface Antigen Negative (Negative); ~HepC Num1 0.61 S/CO (0.00-0.79); ~Hepatitis A Antibody IgM Nonreactive (Nonreactive); ~Hepatitis B Surface Antibody NONREACTIVE (Nonreactive); ~Hepatitis C Antibody Nonreactive (Nonreactive)
[2021-12-08 13:42] LABS: HBc Num2 1.38 S/CO; HBc Num3 1.41 S/CO; Hepatitis B Core Antibody Reactive (Nonreactive)
[2021-12-09 11:56] LABS: Hepatitis B Core Antibody IgM NON-REACTIVE (NON-REACTIVE)
[2021-12-10 23:11] LABS: TS Negative Control Passed; TS Panel A 0; TS Panel B 0; TS Positive Control Passed; TSpotTB Negative (Negative)
== END 2021-12-08 11:05 | disposition home or self-care (01) ==
LOC: HO.XRAY 11:04
PROVIDERS: PCP Family Medicine; Visit Provider Internal Medicine Rheumatology
DX: Z11.1 Encounter for screening for respiratory tuberculosis (principal); M79.641 Pain in right hand; M79.642 Pain in left hand; M79.671 Pain in right foot; M79.672 Pain in left foot; M25.511 Pain in right shoulder; R74.8 Abnormal levels of other serum enzymes
CPT/HCPCS: 36415; 73030; 73130; 73630; 80053; 84550; 85025; 85652; 86140; 86481; 86704; 86705; 86706; 86709; 86803; 87340

== ENCOUNTER → 2021-12-20 10:46 | Outpatient (BNVA) | payer SELFPAY | PROVIDERS: PCP Family Medicine; Visit Provider Internal Medicine Rheumatology | DX: M75.81 Other shoulder lesions, right shoulder (principal); M19.041 Primary osteoarthritis, right hand; M19.042 Primary osteoarthritis, left hand; M19.071 Primary osteoarthritis, right ankle and foot; M19.072 Primary osteoarthritis, left ankle and foot | CPT/HCPCS: 99212 ==

== ENCOUNTER 2022-02-10 13:52 | Emergency (ER) | payer SELFPAY ==
--- NOTE | ~2022-02-10 | CT_ITS ---
EXAMINATION: CT ABDOMEN AND PELVIS WITH CONTRAST CLINICAL INFORMATION: Abdominal pain COMPARISON: None TECHNIQUE: Multidetector volumetric images were obtained from the superior aspect of the liver through the pubic symphysis following administration 85 mL of Omnipaque 350 intravenous contrast. Sagittal and coronal reformatted images were obtained on the technologist's workstation. Oral contrast: No This CT examination was performed using dose optimization techniques as appropriate, variously including the following: *Automated exposure control *Adjustment of mA and/or kV according to patient size (this includes techniques or standardized protocols for targeted exams where dose is matched to indication/reason for exam; i.e. extremities or head) *Use of iterative reconstruction technique DLP: 676 mGy-cm FINDINGS: LUNG BASES: The visualized lung bases are unremarkable. LIVER, GALLBLADDER, AND BILIARY TREE: The liver is normal in size, shape, and attenuation. No focal hepatic lesion or biliary ductal dilatation is present. The gallbladder is unremarkable with no evidence of radiopaque gallstones, gallbladder wall thickening, or obvious pericholecystic inflammatory changes. PANCREAS: Unremarkable. SPLEEN: Unremarkable. ADRENAL GLANDS: Nodular thickening of the left adrenal gland measuring 1.6 cm, indeterminate. KIDNEYS AND URETERS: The kidneys are normal in size, shape, and attenuation. No hydronephrosis, hydroureter, or calculi seen. No perinephric stranding. BLADDER: Unremarkable. GASTROINTESTINAL TRACT: The small and large bowel are unremarkable. The appendix is unremarkable. ABDOMINAL WALL: No significant hernia is appreciated. LYMPH NODES: Normal. VASCULAR: Unremarkable. PELVIC VISCERA: Prostatomegaly., Prostate measures 5.7 x 5.0 cm. OSSEOUS STRUCTURES: Degenerative changes of the thoracolumbar spine. CT/CT abdomen pelvis w IV con IMPRESSION: 1. No acute intra-abdominal abnormality. 2. Nodular thickening of the left adrenal gland measuring 1.6 cm, indeterminate. Recommend further evaluation with CT adrenal protocol on a nonemergent basis. 3. Prostatomegaly. Fleischner guidelines were followed.
[2022-02-10 14:25] VITALS: BP 118/96; PULSE 93; RESP 20; TEMP 36.7; O2SAT 96; BMI 32.5
--- NOTE | 2022-02-10 14:27 | ED.ABDPAIN ---
HPI - Abdominal Pain General Chief Complaint: Nausea/Vomiting/Diarrhea Stated Complaint: Vomiting/Abd pain Time Seen by Provider: 02/10/22 22:14 Related Data Previous Rx's Medication Instructions Recorded bupropion HCl 75 mg tablet 37.5 mg PO DAILY 30 days #15 tabs 01/17/22 escitalopram oxalate 20 mg tablet 20 mg PO DAILY 30 days #30 tabs 01/17/22 (Lexapro) fluticasone furoate 50 1 inh inhalation DAILY PRN sinus 01/17/22 mcg/actuation blister powder for symptoms 7 days #30 ea inhalation lorazepam 0.5 mg tablet 0.5 mg PO TID PRN anxiety 30 days 01/17/22 #90 tabs ondansetron 4 mg disintegrating 4 mg PO TID PRN nausea and 02/11/22 tablet vomiting 5 days #10 tabs Allergies Allergy/AdvReac Type Severity Reaction Status Date / Time Opioids-Methadone and Related AdvReac Intermediate Unknown Verified 01/17/22 11:47 morphine AdvReac Unknown dizziness Verified 01/17/22 11:47 PMFSH Past Medical History Medical History Alcohol abuse Anxiety Arthritis COVID-19 Depression Surgical History History of back surgery Family History Family History Mother Breast cancer Congestive heart disease Social History Social History Housing: House Alcohol intake: current Alcohol intake frequency: 3 or more drinks per day Alcohol type: hard liquor Patient Tobacco Use Status: Former Tobacco user e-Cigarette/Vaping Use: Never Used Second Hand Smoke Exposure: No Substance Use Type: Marijuana Advance Directives: No Advance Directives Information Provided: No service: No Current occupational status: employed Current occupational exposures/hazards: No Cognitive needs: No Hearing needs: No Vision needs: No Physical Exam ED Vital Signs: Vital Signs - 24 hr 02/10/22 14:25 02/10/22 23:42 02/11/22 00:08 Temperature 98.1 F 98.3 F 98.3 F Pulse Rate 93 55 81 Respiratory Rate 20 18 16 Blood Pressure 118/96 H 101/60 117/64 Pulse Oximetry 96 97 96 Oxygen Delivery Method Room Air Room Air Room Air BMI result Body Mass Index 32.5 Course Course Course Narrative: This is a rapid medical exam. Deferred additional HPI, ROS, PE department provider. 51-year-old male with a past medical history of anxiety, arthritis. alcohol use disorder presents with vomiting and diarrhea since Monday. Also complaining some abdominal cramping. VSS. Will send labs, UA, COVID/flu/RSV screen Medications Administered Discontinued Medications Generic Name Dose Route Start Last Admin Trade Name Freq PRN Reason Stop Dose Admin Sodium Chloride 1,000 mls @ 999 mls/hr 02/10/22 23:00 02/11/22 00:17 Ns IV 02/11/22 00:00 Infused .Q1H1M HOMERO Infusion Sodium Chloride 1,000 mls @ 999 mls/hr 02/10/22 23:00 02/11/22 00:57 Ns IV 02/11/22 00:00 Infused .Q1H1M HOMERO Infusion Iohexol 85 ml 02/11/22 00:10 02/11/22 00:11 Iohexol 350 Mg/Ml 100 Ml Infus..Btl IV 02/11/22 00:11 85 ml ONCE ONE Administration Ondansetron HCl 4 mg 02/10/22 22:48 02/10/22 23:10 Ondansetron Hcl 4 Mg/2 Ml Vial IVPUSH 02/10/22 22:49 4 mg ONCE ONE Administration Discharge Plan Discharge Clinical Impression: Vomiting, Diarrhea Patient Disposition: Home, Self-Care Instructions: Acute Nausea and Vomiting (ED), Acute Diarrhea (ED) Additional Instructions: Nonspecific finding was noted in your adrenal gland. Please follow-up with your primary physician. A copy of the CT report was given to you. CT follow-up is needed Prescriptions: New ondansetron 4 mg tablet,disintegrating 4 mg PO TID PRN (Reason: nausea and vomiting) 5 Days Qty: 10 0RF No Action lorazepam 0.5 mg tablet 0.5 mg PO TID PRN (Reason: anxiety) 30 Days Qty: 90 0RF Rx Instructions: MassPat verified. Partial refill upon request. fluticasone furoate 50 mcg/actuation blister with device 1 inh inhalation DAILY PRN (Reason: sinus symptoms) 7 Days Qty: 30 0RF Rx Instructions: One spray each nostril daily bupropion HCl 75 mg tablet 37.5 mg PO DAILY 30 Days Qty: 15 1RF escitalopram oxalate [Lexapro] 20 mg tablet 20 mg PO DAILY 30 Days Qty: 30 1RF Referrals: Mark Mora MD [Primary Care Provider] - 02/14/22 Interventions: ED Discharge Assessment Last Done: 02/11/22 01:18 Discharge Date/Time: 02/11/22 01:19
[2022-02-10 15:40] LABS: MANUAL DIFF FLAG NO
[2022-02-10 15:47] LABS: Basophils Percent Auto 0.4 % (0-2); Eosinophils Absolute Auto 0.1 X10*3/uL (0.0-0.4); Eosinophils Percent Auto 0.4 % (0-4); Hemoglobin 15.6 g/dl (14.0-18.0); Imm Gran Abs Auto 0.04 X10*3/uL (0.00-0.03); Imm Gran Pct Auto 0.4 % (0.0-0.4); Lymphocytes Absolute Auto 1.6 X10*3/uL (1.2-4.9); Lymphocytes Percent Auto 14.3 % (20-40); Mean Corpuscular HGB Conc 35.5 g/dl (31.0-36.0); Mean Corpuscular Hemoglobin 31.5 pg (27.0-33.0); Mean Corpuscular Volume 88.9 fL (80.0-98.0); Mean Platelet Volume 9.6 fL (9.4-12.4); Monocytes Absolute Auto 0.9 X10*3/uL (0.1-1.2); Neutrophils Absolute Auto 8.7 x10*3/uL (2.0-8.3); Neutrophils Percent Auto 76.5 % (45-73); Platelet Count 260 X10*3/uL (160-400); Red Blood Count 4.95 X10*6/uL (4.60-5.80); Red Cell Distribution Width 12.4 % (11.0-16.0); White Blood Count 11.4 X10*3/uL (4.8-10.8)
[2022-02-10 16:08] LABS: Alanine Aminotransferase 39 U/L (0-40); Albumin Level 4.9 g/dL (3.5-5.0); Alkaline Phosphatase 71 U/L (39-117); Anion Gap 16 (12-20); Aspartate Amino Transferase 40 U/L (5-37); Bilirubin Direct 0.3 mg/dL (0.0-0.5); Bilirubin Total 0.7 mg/dL (0.0-1.0); Blood Urea Nitrogen 14 mg/dL (9-16); Calcium 9.8 mg/dL (8.4-10.2); Carbon Dioxide 25 mmol/L (22-29); Chloride 96 mmol/L (96-108); Creatinine Clr Calc Pharmacy 84.3; Estimated Glomerular Filt Rate 57; Glucose Random 118 mg/dL (60-115); Magnesium 1.5 mg/dL (1.6-2.6); Potassium 3.8 mmol/L (3.3-5.1); Sodium 133 mmol/L (135-145); Total Protein 7.6 g/dL (6.5-8.0)
[2022-02-10 16:23] LABS: Influenza A PCR NEGATIVE (Negative); Influenza B PCR NEGATIVE (Negative); Resp Syncy Virus RNA Qual PCR NEGATIVE (Negative); SARS COV2 PCR INHOUSE NEGATIVE (Negative)
[2022-02-10 22:27] LABS: Appearance Urine Clear; Color Urine Yellow; Glucose Urine UA Negative (Negative); Leukocyte Esterase Urine Negative (Negative); Nitrite Urine Negative (Negative); Specific Gravity - Urine 1.015 (1.005-1.025); Urine Blood Negative (Negative); Urine Ketones Negative (Negative); Urine Protein Trace mg/dL (Neg-Trace)
--- NOTE | 2022-02-10 22:51 | ED.NAVMDI ---
HPI - Nausea/Vomiting/Diarrhea General Chief complaint: Nausea/Vomiting/Diarrhea Stated complaint: Vomiting/Abd pain Time Seen by Provider: 02/10/22 22:14 History of Present Illness HPI Narrative: Patient is 51 male presents today with nausea vomiting diarrhea generalized malaise. History of hernia repair as a child. Previous history of alcohol use. Positive nausea vomiting diarrhea diarrhea is yellow green in color. No history of obstruction in the past Related Data Previous Rx's Medication Instructions Recorded bupropion HCl 75 mg tablet 37.5 mg PO DAILY 30 days #15 tabs 01/17/22 escitalopram oxalate 20 mg tablet 20 mg PO DAILY 30 days #30 tabs 01/17/22 (Lexapro) fluticasone furoate 50 1 inh inhalation DAILY PRN sinus 01/17/22 mcg/actuation blister powder for symptoms 7 days #30 ea inhalation lorazepam 0.5 mg tablet 0.5 mg PO TID PRN anxiety 30 days 01/17/22 #90 tabs ondansetron 4 mg disintegrating 4 mg PO TID PRN nausea and 02/11/22 tablet vomiting 5 days #10 tabs Allergies Allergy/AdvReac Type Severity Reaction Status Date / Time Opioids-Methadone and Related AdvReac Intermediate Unknown Verified 01/17/22 11:47 morphine AdvReac Unknown dizziness Verified 01/17/22 11:47 Review of Systems Review of Systems: Positive nausea vomiting Positive diarrhea Positive generalized malaise Yes all other systems are reviewed and are negative [facility] Past Medical History Attestation statement: The following information was validated with the patient. Medical History Alcohol abuse Anxiety Arthritis COVID-19 Depression Surgical History History of back surgery Family History Family History Mother Breast cancer Congestive heart disease Social History Social History Housing: House Alcohol intake: current Alcohol intake frequency: 3 or more drinks per day Alcohol type: hard liquor Patient Tobacco Use Status: Former Tobacco user e-Cigarette/Vaping Use: Never Used Second Hand Smoke Exposure: No Substance Use Type: Marijuana Advance Directives: No Advance Directives Information Provided: No service: No Current occupational status: employed Current occupational exposures/hazards: No Cognitive needs: No Hearing needs: No Vision needs: No Physical Exam Vital Signs: Vital Signs: Last Vital Signs Temp 98.3 F 02/11/22 00:08 Pulse 81 02/11/22 00:08 Resp 16 02/11/22 00:08 BP 117/64 02/11/22 00:08 Pulse Ox 96 02/11/22 00:08 O2 Del Method 02/11/22 00:08 BMI result Body Mass Index 32.5 Appearance: Alert. Oriented X3. No acute distress. Eyes: Pupils equal, round and reactive to light. ENT: Pharynx normal. Neck: Normal inspection. Neck supple. No lymph nodes noted. No crepitus CVS: Normal heart rate and rhythm. Pulses normal. Normal S1 and S2 Respiratory: No respiratory distress. Breath sounds normal. No Wheezing. No rales Abdomen: Soft and nontender. No rigidity. No distention. good BS x4 Skin: Skin warm and dry. Normal skin color. Normal skin turgor. Extremities: No lower extremity edema. Neurovascular intact to all extremities. No Lacerations. No Rash Neuro: Oriented X 3. No motor deficit. No sensory deficit. Moving all extermities. No slurred speech Medications Administered Discontinued Medications Generic Name Dose Route Start Last Admin Trade Name Freq PRN Reason Stop Dose Admin Sodium Chloride 1,000 mls @ 999 mls/hr 02/10/22 23:00 02/11/22 00:17 Ns IV 02/11/22 00:00 Infused .Q1H1M HOMERO Infusion Sodium Chloride 1,000 mls @ 999 mls/hr 02/10/22 23:00 02/11/22 00:57 Ns IV 02/11/22 00:00 Infused .Q1H1M HOMERO Infusion Iohexol 85 ml 02/11/22 00:10 02/11/22 00:11 Iohexol 350 Mg/Ml 100 Ml Infus..Btl IV 02/11/22 00:11 85 ml ONCE ONE Administration Ondansetron HCl 4 mg 02/10/22 22:48 02/10/22 23:10 Ondansetron Hcl 4 Mg/2 Ml Vial IVPUSH 02/10/22 22:49 4 mg ONCE ONE Administration Medical Decision Making Medical Decision Making MDM Narrative: Well-appearing not acute distress. Positive abdominal pain nausea vomiting diarrhea. Will give IV fluids. Zofran for nausea. Monitor closely. CT scan of the abdomen. CT scan showed no obstruction no abscess no perforation. Shows thickening in the adrenal gland. This finding was discussed with patient follow-up on an outpatient needed. Zofran for nausea. Currently in stable condition Lab Attestation: I reviewed the patient's lab results. (Normal white count normal LFTs negative flu RSV COVID) Tests considered but not performed: Tests Considered But Not Performed (No need for ultrasound as patient has nausea vomiting diarrhea more consistent with gastroenteritis) Prescription medication was considered but ultimately not given after discussion with patient/family. (e.g., pain medication, antiviral, antibiotic): Prescriptions considered but not given Additional Comments: No need for narcotics Discharge Plan Discharge Clinical Impression: Vomiting, Diarrhea Patient Disposition: Home, Self-Care Instructions: Acute Nausea and Vomiting (ED), Acute Diarrhea (ED) Additional Instructions: Nonspecific finding was noted in your adrenal gland. Please follow-up with your primary physician. A copy of the CT report was given to you. CT follow-up is needed Prescriptions: New ondansetron 4 mg tablet,disintegrating 4 mg PO TID PRN (Reason: nausea and vomiting) 5 Days Qty: 10 0RF No Action lorazepam 0.5 mg tablet 0.5 mg PO TID PRN (Reason: anxiety) 30 Days Qty: 90 0RF Rx Instructions: MassPat verified. Partial refill upon request. fluticasone furoate 50 mcg/actuation blister with device 1 inh inhalation DAILY PRN (Reason: sinus symptoms) 7 Days Qty: 30 0RF Rx Instructions: One spray each nostril daily bupropion HCl 75 mg tablet 37.5 mg PO DAILY 30 Days Qty: 15 1RF escitalopram oxalate [Lexapro] 20 mg tablet 20 mg PO DAILY 30 Days Qty: 30 1RF Referrals: Mark Mora MD [Primary Care Provider] - 02/14/22
[2022-02-10] MEDS: 0.9 % Sodium Chloride 1,000 ML 999 ML IV ×2 (23:07)
[2022-02-10] MEDS: ondansetron HCL 4 MG/2 ML VIAL IVPUSH (23:10)
--- NOTE | 2022-02-10 23:33 | PC.NURSE ---
Pt resting comfortably on stretcher at this time. IV placed and medications administered per MAY. Pt denies pain at this time. Would like something for his sinus congestion, provider aware
[2022-02-10 23:42] VITALS: BP 101/60; PULSE 55; RESP 18; TEMP 36.8; O2SAT 97
[2022-02-11 00:08] VITALS: BP 117/64; PULSE 81; RESP 16; TEMP 36.8; O2SAT 96
[2022-02-11] MEDS: iohexoL 350 MG/ML 100 ML INFUS..BTL 85 ML IV (00:11)
== END 2022-02-11 01:19 | disposition home or self-care (01) ==
PROVIDERS: Nurse Practitioner Family; Emergency Provider Emergency Medicine Emergency Medical Services; PCP Family Medicine
DX: R11.2 Nausea with vomiting, unspecified (principal); R19.7 Diarrhea, unspecified; Z79.899 Other long term (current) drug therapy; Z20.822 Contact with and (suspected) exposure to COVID-19
CPT/HCPCS: 0241U; 36415; 74177; 80048; 80076; 81003; 83735; 85025; 96361; 96374; 99284; J2405; Q9967

== ENCOUNTER 2022-02-17 12:02 | Outpatient (REF) | payer OTHER, SELFPAY | END 2022-02-17 12:03 | disposition home or self-care (01) | LOC: HO.LAB 12:02 | PROVIDERS: Visit Provider Family Medicine | DX: Z13.89 Encounter for screening for other disorder (principal) ==

== ENCOUNTER 2022-03-14 11:37 | Outpatient (REF) | payer SELFPAY ==
[2022-03-14 14:00] LABS: MANUAL DIFF FLAG NO
[2022-03-14 14:07] LABS: Basophils Percent Auto 0.5 % (0-2); Eosinophils Absolute Auto 0.1 X10*3/uL (0.0-0.4); Eosinophils Percent Auto 1.6 % (0-4); Hemoglobin 13.6 g/dl (14.0-18.0); Imm Gran Abs Auto 0.02 X10*3/uL (0.00-0.03); Imm Gran Pct Auto 0.4 % (0.0-0.4); Lymphocytes Absolute Auto 1.7 X10*3/uL (1.2-4.9); Lymphocytes Percent Auto 30.4 % (20-40); Mean Corpuscular HGB Conc 33.2 g/dl (31.0-36.0); Mean Corpuscular Hemoglobin 30.4 pg (27.0-33.0); Mean Corpuscular Volume 91.5 fL (80.0-98.0); Mean Platelet Volume 10.1 fL (9.4-12.4); Monocytes Absolute Auto 0.4 X10*3/uL (0.1-1.2); Monocytes Percent Auto 7.2 % (2-11); Neutrophils Absolute Auto 3.3 x10*3/uL (2.0-8.3); Neutrophils Percent Auto 59.9 % (45-73); Platelet Count 249 X10*3/uL (160-400); Red Blood Count 4.48 X10*6/uL (4.60-5.80); White Blood Count 5.5 X10*3/uL (4.8-10.8)
[2022-03-14 14:18] LABS: Appearance Urine Clear; Color Urine Yellow; Glucose Urine UA Negative (Negative); Leukocyte Esterase Urine Negative (Negative); Nitrite Urine Negative (Negative); PH 5.5 (5.0-9.0); Specific Gravity - Urine 1.015 (1.005-1.025); Urine Blood Negative (Negative); Urine Ketones Negative (Negative); Urine Protein Negative (Neg-Trace)
[2022-03-14 14:19] LABS: Estimated Average Glucose 111 mg/dL; Hemoglobin A1c % 5.5 %
[2022-03-14 14:28] LABS: Alanine Aminotransferase 28 U/L (0-40); Albumin Level 4.4 g/dL (3.5-5.0); Alkaline Phosphatase 48 U/L (39-117); Anion Gap 12 (12-20); Aspartate Amino Transferase 22 U/L (5-37); Bilirubin Total 0.3 mg/dL (0.0-1.0); Blood Urea Nitrogen 16 mg/dL (9-16); Calcium 9.6 mg/dL (8.4-10.2); Carbon Dioxide 24 mmol/L (22-29); Chloride 107 mmol/L (96-108); Cholesterol 207 mg/dL; Estimated Glomerular Filt Rate > 60; Glucose Fasting 105 mg/dL (60-99); HDL Cholesterol 36 mg/dL; LDL Cholesterol Calculated 151 mg/dl; Potassium 4.4 mmol/L (3.3-5.1); Sodium 139 mmol/L (135-145); Total Protein 6.9 g/dL (6.5-8.0); Triglycerides 101 mg/dL
[2022-03-14 14:38] LABS: TSH reflex Free T4 0.58 uIU/mL (0.32-4.0)
[2022-03-14 15:23] LABS: Creatinine Urine 94.38 mg/dL; Microalbumin Urine < 5.0 mg/L
== END 2022-03-14 11:38 | disposition home or self-care (01) ==
LOC: HO.WFDLDS 11:37
PROVIDERS: Visit Provider Family Medicine
DX: Z00.00 Encounter for general adult medical examination without abnormal findings (principal); R35.0 Frequency of micturition; I10 Essential (primary) hypertension; Z13.1 Encounter for screening for diabetes mellitus; Z12.5 Encounter for screening for malignant neoplasm of prostate; Z12.31 Encounter for screening mammogram for malignant neoplasm of breast
CPT/HCPCS: 36415; 80053; 80061; 81003; 82043; 83036; 84153; 84443; 85025

== ENCOUNTER → 2022-03-29 09:47 | Outpatient (BNVA) | payer OTHER, SELFPAY | PROVIDERS: PCP Family Medicine; Visit Provider Internal Medicine Rheumatology | DX: M75.81 Other shoulder lesions, right shoulder (principal); M19.071 Primary osteoarthritis, right ankle and foot; M19.041 Primary osteoarthritis, right hand; M19.042 Primary osteoarthritis, left hand | CPT/HCPCS: 99212 ==

== ENCOUNTER → 2022-04-18 10:16 | Outpatient (BNVA) | payer OTHER, SELFPAY | PROVIDERS: Visit Provider Orthopaedic Surgery | DX: R20.0 Anesthesia of skin (principal); R20.2 Paresthesia of skin; M79.641 Pain in right hand; M79.642 Pain in left hand | CPT/HCPCS: 99202 ==

== ENCOUNTER 2022-04-21 08:10 | Outpatient (REF) | payer OTHER, SELFPAY ==
--- NOTE | 2022-04-21 08:22 | EMG_ITS ---
Bilateral median and ulnar motor and sensory studies were performed. Bilateral radial sensory studies were performed and paraspinal muscles were tested with a needle. IMPRESSION: 1. [id number] bilateral median neuropathy across carpal tunnel. 2. Mild bilateral ulnar neuropathy across cubital tunnel. MD CHELY Meredith/CAL / [id number]
== END 2022-04-21 08:11 | disposition home or self-care (01) ==
LOC: HO.NEURO 08:10
PROVIDERS: PCP Family Medicine; Visit Provider Orthopaedic Surgery
DX: R20.0 Anesthesia of skin (principal); R20.2 Paresthesia of skin
CPT/HCPCS: 95886; 95911

== ENCOUNTER 2022-05-17 | Outpatient (REF) | payer OTHER, SELFPAY ==
--- NOTE | ~2022-05-17 | FL_ITS ---
EXAMINATION: XR FLUOROSCOPY WITH IMAGES CLINICAL INFORMATION: Other injury of unspecified body region initial encounter. COMPARISON: None available. TECHNIQUE: Fluoroscopy Supervised By: Dr. Anushka Driver. Fluoroscopy Time: 14.2. Cumulative Dose: mGy. DAP: 5625.5 Gycm2. Images: 4. Images are submitted for interpretation on 07/29/2022 FINDINGS: Images demonstrate needle placement adjacent to the 3rd MCP joint. There is joint space narrowing at the third MCP joint and question slight ulnar displacement of the 3rd metacarpal head with respect to the proximal phalanx. FL/FL guidance in treatment room IMPRESSION: Fluoroscopy guidance for orthopedic procedure.
== END 2022-05-17 00:01 | disposition home or self-care (01) ==
LOC: HO.HOSX
PROVIDERS: Visit Provider Orthopaedic Surgery
DX: Z13.89 Encounter for screening for other disorder (principal)

== ENCOUNTER → 2022-05-17 09:35 | Outpatient (BNVA) | payer OTHER, SELFPAY | PROVIDERS: PCP Family Medicine; Visit Provider Orthopaedic Surgery | DX: M19.141 Post-traumatic osteoarthritis, right hand (principal); T14.90XS Injury, unspecified, sequela; R20.0 Anesthesia of skin; R20.2 Paresthesia of skin | CPT/HCPCS: 20600; 77002; 99212; J1020 ==

== ENCOUNTER 2022-10-19 08:33 | Outpatient (AMB) | payer OTHER, SELFPAY ==
--- NOTE | 2022-10-19 08:36 | A.OFFPC_ITS ---
Vital Signs 10/19/22 08:38 Height 6 ft Weight 224 lb 8 oz BMI 30.4 BP 112/74 Blood Pressure Location Lt brachial Position Sitting Pulse 81 Pulse Source Pulse Oximeter Pulse Oximetry (%) 95 Oxygen Delivery Method Room Air Intake Visit Reasons: Lower back pain/req eye test for license Intake Note: Patient is here for lower back pain I did eye exam and his vision was right eye, 20/25, Left, 20/30, 20/25, and both eyes were 20/25, colors were good with no corrective lenses. Allergies Opioids-Methadone and Related Adverse Reaction (Intermediate, Verified 10/19/22 08:50) Unknown morphine Adverse Reaction (Unknown, Verified 10/19/22 08:50) dizziness novacaine Allergy (Uncoded 10/19/22 08:50) swelling Tobacco use date assessed: 02/17/22 Dental Screening Dental Screen Date: 10/19/22 Did you have a dental visit in the last 12 months?: No Did you have a dental problem in the last 6 months where you did not have access to dental care?: No Was dental information given to patient?: Yes HPI Lower back pain/req eye test for license HPI Details 52 y/o male presents with complaints of low back pain. Pt reports hx of back surgery L4-L5. He states he has had meloxicam in the past. Tylenol has not been working well for him. Pt is requesting an eye test for his license. Pt has complaints of R hand pain and swelling. He also has complaints of a cyst on his R jauregui. [facility] Medical History Alcohol abuse Anxiety Arthritis COVID-19 Depression Surgical History History of back surgery Family History Mother Breast cancer Congestive heart disease Social History Housing: House Alcohol intake: current Alcohol intake frequency: 3 or more drinks per day Alcohol type: hard liquor Patient Tobacco Use Status: Former Tobacco user e-Cigarette/Vaping Use: Never Used Second Hand Smoke Exposure: No Substance Use Type: Marijuana service: No Current occupational status: employed Current occupational exposures/hazards: No Cognitive needs: No Hearing needs: No Vision needs: No Questionnaire WON-7 AMB Questionnaire WON-7 Date WON - 7 assessed: 02/17/22 Source: Developed by Drs. Adalberto Reyes, Marion Huerta, Lester Bernard and colleagues, with an educational won from [employer]. Review of Systems Const Denies chills, Denies fatigue, Denies fever(s), Denies headache(s) and Denies weakness ENT Denies dizziness and Denies headache(s) Card Denies dyspnea Resp Denies cough, Denies dyspnea, Denies wheezing and Denies other (shortness of breath) Musc Reports back pain, Denies numbness and Denies tingling Neuro Denies dizziness, Denies headache(s), Denies numbness, Denies tingling and Denies weakness Psych Denies anxiety and Denies depression Endo Denies fatigue Aller/Immun Denies wheezing Physical exam (Primary Care) Vital Signs: Last Vital Signs Pulse 81 10/19/22 08:38 BP 112/74 10/19/22 08:38 Pulse Ox 95 10/19/22 08:38 Oxygen Delivery Method Room Air 10/19/22 08:38 BMI result Body Mass Index 30.4 Tobacco/Smoking Status: Tobacco use Status Tobacco use date assessed 02/17/22 10/19/22 08:52 Patient Tobacco Use Status Former Tobacco user 10/19/22 08:52 e-Cigarette/Vaping Use Never Used 10/19/22 08:52 Const General: well developed; No acute distress Nutritional Appearance: well nourished Orientation/consciousness: patient oriented x3 HENMT Head: Yes normocephalic and Yes atraumatic Eyes General: appearance normal, both eyes and all related structures Pupils: Equal, round and reactive pupils present EOM: EOMs intact bilaterally Resp Effort & Inspection: normal respiratory effort Neuro General: patient oriented x3 and gait normal Cranial nerves: Yes Equal, round and reactive pupils present Psych Affect: normal affect Assessment and Plan Assessment & Plan (1) Back pain: Code(s): M54.9 - Dorsalgia, unspecified Plan: Recurrent low back pain. Will check an x-ray and refer him to physical therapy Start meloxicam Continue ice and heat (2) Cyst of skin: Code(s): L72.9 - Follicular cyst of the skin and subcutaneous tissue, unspecified Plan: Cyst at right jauregui. 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
[2022-10-19 08:38] VITALS: BP 112/74; PULSE 81; O2SAT 95; BMI 30.4
== END 2022-10-19 09:07 | disposition home or self-care (01) ==
PROVIDERS: PCP Family Medicine; Visit Provider Family Medicine
DX: M54.9 Dorsalgia, unspecified (principal); L72.9 Follicular cyst of the skin and subcutaneous tissue, unspecified; M19.041 Primary osteoarthritis, right hand
CPT/HCPCS: 99214

== ENCOUNTER 2022-11-15 09:06 | Outpatient (AMB) | payer OTHER, SELFPAY ==
--- NOTE | 2022-11-15 09:22 | MHC.OFFVIS ---
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 States injection from 05/17/22 lasted until recently, would like to discuss repeat of injection. Also states his numbness and tingling has improved since injection. Allergies Opioids-Methadone and Related Adverse Reaction (Intermediate, Verified 11/15/22 09:34) Unknown morphine Adverse Reaction (Unknown, Verified 11/15/22 09:34) dizziness novacaine Allergy (Uncoded 11/15/22 09:34) swelling HPI ov- Primary osteoarthritis, right hand HPI Details Victor Hugo Meza is a 52-year-old [id number] man who presents today to the office for a follow-up of osteoarthritis of right hand. The patient had right middle finger MCP joint injection. DOI: 05/17/22. The patient states that his pain was significantly improved after the last injection. He has on and off mild swelling in his hand. He is able to make the fist. He has intermittent on and off numbness and paresthesia in his right hand. 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 He has no history of diabetes mellitus. He has noticed a clicking sound in his knee while walking. He suspects that there might be a small meniscus tear that is affecting his ambulation. [facility] Medical History Alcohol abuse Anxiety Arthritis COVID-19 Depression Surgical History History of back surgery Family History Mother Breast cancer Congestive heart disease Social History Housing: House Alcohol intake: current Alcohol intake frequency: 3 or more drinks per day Alcohol type: hard liquor Patient Tobacco Use Status: Former Tobacco user e-Cigarette/Vaping Use: Never Used Second Hand Smoke Exposure: No Substance Use Type: Marijuana service: No Current occupational status: employed Current occupational exposures/hazards: No Cognitive needs: No Hearing needs: No Vision needs: No Review of Systems Const All systems reviewed & are unremarkable except as noted in HPI and below Physical Exam Vital Signs: BMI result Body Mass Index 30.4 Const General: cooperative, healthy appearing and no acute distress Orientation/consciousness: patient oriented x3 HEENT Head: Yes normocephalic and Yes atraumatic Eyes EOM: EOMs intact bilaterally Resp Effort & Inspection: normal respiratory effort and able to speak in complete sentences Cardio Jugular venous distension: no JVD Skin General skin exam: turgor normal, ecchymosis (No) and erythema (No) Rashes: no rashes Trauma: no lacerations or abrasions Neuro Other: Vascular: Cap refill brisk General: patient oriented x3 Extrem Other: The patient is alert, oriented, and in no acute distress. Median ulnar radial nerve motor and sensory were grossly intact today. He can make a fist and extend all of his digits and had no locking or catching. At this time he has pretty good range of motion at that 3rd MCP joint and can bring his fingers into extension and then closed to a fist. He does have some enlargement of the MCP joints and tenderness to palpation over the dorsal aspect of the 3rd MCP joint. There is also palpable osteophyte formation. There is some healed scars over the dorsal aspect of the 3rd MCP joint. These are old and well healed. Good active range of motion at the PIP and D IP joints 12/08/21: XR HAND, RIGHT. XR HAND, LEFT. These radiographs were reviewed by me today in clinic. Three views of the right hand show significant right 3rd MCP joint osteoarthritis with joint space narrowing and significant osteophyte formation on the 3rd metacarpal head. He also has some evidence of 2nd MCP joint osteoarthritis. 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 The patient is status post right middle finger MCP joint injection. DOI: 05/17/22. He appeared to do very well after his injection and is interested in setting up another injection. I educated him about this condition. We discussed the importance of activity modification and of maintaining range of motion. At some point he might benefit from a silicone implant or other arthroplasty. 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 Such procedures are ill-advised, and likely not to be long-lasting while he is doing such heavy work. The patient is interested in having another steroid injection. He will make an appointment with me for 30 minute appointment to have a right 3rd MCP joint injection using the FluoroScan for needle placement. 2. Bilateral Carpal tunnel syndrome, mild-moderate Symptoms intermittent. Mild to moderate. 3. Bilateral Cubital tunnel syndrome, mild Mild to moderate. I educated the patient again about carpal tunnel syndrome and cubital tunnel syndrome. It sounds like he gets occasional numbness and tingling in his hands but he does not think it is quite every day. That being said nerve conduction study does show mild to moderate carpal tunnel syndrome. I talked about the risks of waiting too long, and that we very much would want take care of this once his symptoms start becoming close to every day. Scribed for Dr. Anushka Driver by David Salazar, medical cash poster, on 11/15/2022. I, Dr. Anushka Driver, have personally reviewed and agree with the information entered by the scribe. 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
[2022-11-15 09:23] VITALS: BMI 30.4
== END 2022-11-15 09:59 | disposition home or self-care (01) ==
PROVIDERS: PCP Family Medicine; Visit Provider Orthopaedic Surgery
DX: G56.01 Carpal tunnel syndrome, right upper limb (principal); G56.21 Lesion of ulnar nerve, right upper limb; M19.041 Primary osteoarthritis, right hand
CPT/HCPCS: 99213

== ENCOUNTER → 2022-11-15 09:06 | Outpatient (BNVA) | payer OTHER, SELFPAY | PROVIDERS: PCP Family Medicine; Visit Provider Orthopaedic Surgery | DX: M19.041 Primary osteoarthritis, right hand (principal); G56.01 Carpal tunnel syndrome, right upper limb; G56.21 Lesion of ulnar nerve, right upper limb | CPT/HCPCS: 99212 ==

== ENCOUNTER 2022-11-24 11:37 | Outpatient (REF) | payer OTHER, SELFPAY | END 2022-11-24 11:38 | disposition home or self-care (01) | LOC: HO.HOSX 11:37 | PROVIDERS: Visit Provider Orthopaedic Surgery | DX: Z13.89 Encounter for screening for other disorder (principal) ==

== ENCOUNTER → 2022-12-27 09:17 | Outpatient (BNVA) | payer OTHER, SELFPAY | PROVIDERS: PCP Family Medicine; Visit Provider Orthopaedic Surgery ==

== ENCOUNTER 2023-03-07 13:39 | Outpatient (AMB) | payer SELFPAY ==
--- NOTE | 2023-03-07 13:55 | A.OFFVIS_ITS ---
Intake Intake Visit Reasons: OV-R MC-MCP INJ u/Fluoro Intake Note: Victor Hugo 52 yr old male presents today for his right 3rd MCP joint injection using the FluoroScan. States last injection from 05/17/22 helped relieve pain. Allergies Opioids-Methadone and Related Adverse Reaction (Intermediate, Verified 03/07/23 13:56) Unknown morphine Adverse Reaction (Unknown, Verified 03/07/23 13:56) dizziness novacaine Allergy (Uncoded 03/07/23 13:56) swelling Medication List - Last Reconciled 03/07/23 by Sobia Monteiro RN meloxicam 15 mg PO DAILY 30 days HPI OV-R MC-MCP INJ u/Fluoro HPI Details Victor Hugo is a 52 year old right hand dominant man who presents to discuss treatment for his right middle finger OA. He has a hx of a right middle finger MCP joint injection, done on: 05/17/22. He says that his pain was significantly improved after the last injection and he would like to repeat this today. He denies any new injury. He has intermittent on and off numbness and paresthesia in his right hand. 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 [facility] Medical History Alcohol abuse Anxiety Arthritis COVID-19 Depression Surgical History History of back surgery Family History Mother Breast cancer Congestive heart disease Social History Housing: House Alcohol intake: current Alcohol intake frequency: 3 or more drinks per day Alcohol type: hard liquor Patient Tobacco Use Status: Former Tobacco user e-Cigarette/Vaping Use: Never Used Second Hand Smoke Exposure: No Substance Use Type: Marijuana service: No Current occupational status: employed Current occupational exposures/hazards: No Cognitive needs: No Hearing needs: No Vision needs: No Review of Systems Const All systems reviewed & are unremarkable except as noted in HPI and below Physical Exam Const General: no acute distress and alert Orientation/consciousness: patient oriented x3 Neuro General: patient oriented x3 Extrem Other: Evaluation of Upper Extremity: The patient is alert, oriented, and in no acute distress Neuro: Median, Ulnar, Radial nerves motor and sensory intact and sensation is normal to the tips of all digits Vascular: Cap refill brisk ROM: He can make a fist and extend all of his digits and had no locking or catching. At this time he has pretty good range of motion at that 3rd MCP joint and can bring his fingers into extension and then closed to a fist. He does have some enlargement of the MCP joints and tenderness to palpation over the dorsal aspect of the 3rd MCP joint. There is also palpable osteophyte formation. There is some healed scars over the dorsal aspect of the 3rd MCP joint. These are old and well healed. Good active range of motion at the PIP and DIP joints Radiographs: 3 views of the right hand from were reviewed by me today in clinic. They show significant right 3rd MCP joint osteoarthritis with joint space narrowing and significant osteophyte formation on the 3rd metacarpal head. He also has some evidence of 2nd MCP joint osteoarthritis. Psych Appearance: grossly normal Affect: normal affect Attitude: cooperative Office Procedures Fracture Care Details: No fracture, injection with FluoroScan for needle guidance [id number], [id number] Fracture Billing Code: Fracture Billing Code Assessment & Plan Assessment & Plan (1) Carpal tunnel syndrome of right wrist: Code(s): G56.01 - Carpal tunnel syndrome, right upper limb (2) Cubital tunnel syndrome on right: Code(s): G56.21 - Lesion of ulnar nerve, right upper limb (3) Degenerative arthritis of metacarpophalangeal joint of middle finger of rig ht hand: Code(s): M19.041 - Primary osteoarthritis, right hand Plan Assessment & Plan 1. 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 S/P MCP joint injection. Date of Injection 05/17/22. He appeared to do very well after his injection and would like to repeat this again today I educated him about this condition. We discussed the importance of activity modification and of maintaining range of motion. At some point he might benefit from a silicone implant or other arthroplasty. However, at present he is working as a [employer]. 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 Such procedures are ill-advised, and likely not to be long- lasting while he is doing such heavy work. Injection #1 : The risks and benefits of a steroid injection including but not limited to risk of damage to blood vessels, nerve, tendon, infection, skin bleaching, persistent or worsening pain, and failure to improve symptoms were discussed with the patient and they wish to proceed with the steroid injection. Once consent was obtained the skin over the dorsum of the Right middle finger MCP joint was sterilely prepped. The joint was then injected with a combination of 1 mL of (40 mg/ml} Depo-Medrol and 1% plain Lidocaine, using the FluoroScan for needle guidance. The patient appears to have tolerated the procedure well and with no complications. He had good early relief before leaving clinic today. He knows that they may not have another steroid injection into this joint for least 4 months. 2. Bilateral Carpal tunnel syndrome, mild-moderate Symptoms intermittent. Mild to moderate. 3. Bilateral Cubital tunnel syndrome, mild Mild to moderate. I educated the patient again about carpal tunnel syndrome and cubital tunnel syndrome. It sounds like he gets occasional numbness and tingling in his hands but he does not think it is quite every day. That being said nerve conduction s tudy does show mild to moderate carpal tunnel syndrome. I talked about the risks of waiting too long, and that we very much would want take care of this once his symptoms start becoming close to every day. Scribed for Anushka Driver MD by Jacek Perdomo, director of medical review, on 03/07/23 at 2:15 PM, EST. 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
== END 2023-03-07 14:59 | disposition home or self-care (01) ==
PROVIDERS: PCP Family Medicine; Visit Provider Orthopaedic Surgery
DX: G56.01 Carpal tunnel syndrome, right upper limb (principal); G56.21 Lesion of ulnar nerve, right upper limb; M19.041 Primary osteoarthritis, right hand
CPT/HCPCS: 20600; 77002; 99213

== ENCOUNTER 2023-03-07 13:39 | Outpatient (REF) | payer OTHER, SELFPAY ==
--- NOTE | ~2023-03-07 | FL_ITS ---
EXAMINATION: XR FLUOROSCOPY WITH IMAGES CLINICAL INFORMATION: Other injury of unspecified body region initial encounter. COMPARISON: None available. TECHNIQUE: Fluoroscopy Supervised By: Dr. Anushka Driver. Fluoroscopy Time: 121 seconds. DAP: 5139.4 Gycm2. Images: 1. Images are submitted for interpretation on 05/01/2023 FINDINGS: Images demonstrate needle placement adjacent to the 3rd MCP joint. There is joint space narrowing at the third MCP joint and question slight ulnar displacement of the 3rd metacarpal head with respect to the proximal phalanx. There are prominent marginal osteophytes. Findings appear related to osteoarthritis. FL/FL guided needle placement IMPRESSION: Fluoroscopy guidance for orthopedic procedure.
== END 2023-03-07 13:40 | disposition home or self-care (01) ==
LOC: HO.HOSX 13:39
PROVIDERS: PCP Family Medicine; Visit Provider Orthopaedic Surgery
DX: M19.041 Primary osteoarthritis, right hand (principal); G56.01 Carpal tunnel syndrome, right upper limb; G56.21 Lesion of ulnar nerve, right upper limb
CPT/HCPCS: 20600; 77002; 99212; J1020

== ENCOUNTER 2023-03-16 11:22 | Outpatient (REF) | payer OTHER, SELFPAY | END 2023-03-16 11:23 | disposition home or self-care (01) | LOC: HO.HOSX 11:22 | PROVIDERS: Visit Provider Orthopaedic Surgery | DX: Z13.89 Encounter for screening for other disorder (principal) ==

== ENCOUNTER 2023-03-22 10:40 | Outpatient (REF) | payer OTHER, SELFPAY | END 2023-03-22 10:41 | disposition home or self-care (01) | LOC: HO.HOSX 10:40 | PROVIDERS: Visit Provider Orthopaedic Surgery | DX: Z13.89 Encounter for screening for other disorder (principal) ==